=== PATIENT | male | born 1940 | race Caucasian/White ===

== ENCOUNTER 2020-07-09 15:19 | Emergency (ER) | payer MEDICARE, OTHER ==
[~2020-07-09 15:19] MED LIST: 3IN1 COMMODE; ALTACE5 MG PO; ASPIRIN EC81 MG PO; CRESTOR20 MG PO; DIFLUCAN 100MG100 MG PO; FLOMAX0.4 MG PO; LOPRESSOR25 MG PO; LOVAZA1 GM PO; METAMUCIL1 DOSE PO; PROTONIX 40MG T40 MG PO; VITAMIN D5000 UNIT PO; ZETIA10 MG PO; ZOFRAN4 MG PO
[2020-07-09 15:46] LABS: BASOPHIL 0.4 % (0-2); EOSINOPHIL 2.1 % (0-7); HCT 44.4 % (42.0-52.0); HGB 14.9 g/dl (13.2-18.0); LYMPHOCYTE 26.5 % (15-48); MCH 30.5 pg (25.0-31.0); MCHC 33.6 g/dL (32.0-36.0); MCV 90.8 fL (78.0-100.0); MONOCYTE 7.9 % (0-12); MPV 9.1 fL (6.0-9.5); NEUTROPHIL 62.9 % (41-80); NRBC 0; PLT 171 K/uL (150-400); RBC 4.89 M/uL (4.70-6.00); RDW 12.9 % (11.5-14.0); WBC 5.2 K/uL (4.0-10.5)
[2020-07-09 16:04] LABS: INR 1.07 (0.9-1.2); PROTHROMBIN TIME 13.2 SECONDS (11.4-13.6); PTT 30.6 SECONDS (22.2-34.7)
[2020-07-09 16:19] LABS: ALBUMIN 3.8 g/dL (3.4-5.0); BILIRUBIN - TOTAL 0.6 mg/dL (0.2-1.0); CREATININE 0.89 mg/dL (0.67-1.17); GLOBULIN (CALCULATION) 3.8 g/dL; POTASSIUM 3.8 mmol/L (3.5-5.1); TOTAL PROTEIN 7.6 g/dL (6.4-8.2)
== END 2020-07-09 17:06 | disposition home or self-care (01) ==
LOC: FER 15:19
PROVIDERS: Emergency Medicine
DX: R07.89 Other chest pain (principal); I10 Essential (primary) hypertension; Z87.19 Personal history of other diseases of the digestive system
CPT/HCPCS: 36415; 71045; 80053; 84484; 85025; 85610; 85730; 93005

== ENCOUNTER → 2021-07-13 | Day surgery (SDC) | payer MEDICARE, OTHER ==
[~2021-07-13] VITALS: Ht 182.9 cm; Wt 78.5 kg
[~2021-07-13] MED LIST changes: +NORCO 5-325 TA1 EACH PO; +ONDANSETRON ODT8 MG PO
[2021-07-13 08:41] LABS: HCT 45.2 % (42.0-52.0); HGB 14.7 g/dl (13.2-18.0); MCH 29.2 pg (25.0-31.0); MCHC 32.5 g/dL (32.0-36.0); MCV 89.9 fL (78.0-100.0); MPV 9.3 fL (6.0-9.5); RBC 5.03 M/uL (4.70-6.00); RDW 12.9 % (11.5-14.0); WBC 5.9 K/uL (4.0-10.5)
[2021-07-13 09:00] LABS: ALBUMIN 3.6 g/dL (3.4-5.0); BILIRUBIN - TOTAL 0.5 mg/dL (0.2-1.0); BUN/CREAT RATIO (CALC) 19.2 RATIO; CREATININE 0.73 mg/dL (0.67-1.17); GLOBULIN (CALCULATION) 3.7 g/dL; POTASSIUM 4.8 mmol/L (3.5-5.1); TOTAL PROTEIN 7.3 g/dL (6.4-8.2)
== END | disposition home or self-care (01) ==
LOC: FAS 08:07
PROVIDERS: Surgery
DX: K40.30 Unilateral inguinal hernia, with obstruction, without gangrene, not specified as recurrent (principal); K66.0 Peritoneal adhesions (postprocedural) (postinfection); D17.79 Benign lipomatous neoplasm of other sites; I25.2 Old myocardial infarction; Z95.1 Presence of aortocoronary bypass graft; Z90.49 Acquired absence of other specified parts of digestive tract
CPT/HCPCS: 36415; 80053; 93005; C1727; C1781; J0690; J1100; J2250; J2405; J2704; J3010; J7120